=== PATIENT | female | born 1995 ===

== ENCOUNTER 2018-08-06 08:06 | Inpatient (IN) | payer OTHER ==
[~2018-08-06] VITALS: Ht 154.9 cm; Wt 3.2 kg
[2018-08-06] MEDS ORDERED: PRENATAL TABLE1 EAC2 PO (09:42)
== END 2018-08-09 11:33 | disposition home or self-care (01) | DRG 788 ==
LOC: LDR 08:06 → O/R 08:06 → OB/GYN 08:06 → O/R 13:56 → OB/GYN 15:45
PROVIDERS: Obstetrics & Gynecology
PROC: 4A1HXCZ Monitoring of Products of Conception, Cardiac Rate, External Approach (ICD-10-PCS; 2018-08-06)
PROC: 10D00Z1 Extraction of Products of Conception, Low, Open Approach (ICD-10-PCS; principal; 2018-08-06 15:45)
DX: O32.8XX0 Maternal care for other malpresentation of fetus, not applicable or unspecified (principal); Z3A.37 37 weeks gestation of pregnancy; Z37.0 Single live birth